=== PATIENT | male | born 1950 | race Caucasian/White ===

== ENCOUNTER → 2016-10-28 | Day surgery (SDC) | payer BC ==
[~2016-10-28] MED LIST: FENTANYL 100 MCG/2 ML VIAL ONE; IV START KIT ONE; LACTATED RINGERS 1,000 ML IV SCH; LACTATED RINGERS 1,000 ML ONE; PROPOFOL 60 ML IV ONE
--- NOTE | 2016-11-01 13:00 | SURGPATH ---
[facility] [address] [place] [id number] Patient Name: MARYBETH LOPEZ MR#: [id number] : 1950 Gender: M Specimen #: [id number] Collected: 10/28/2016 Received: 10/31/2016 Reported: 11/01/2016 Submitting Phys: ANIA JONES Copy To Phys: [facility] Clinical History / Pre-Operative Diagnosis: Screening colonoscopy Specimen Source / Surgical Procedure Performed: Sigmoid colon polyp biopsies 30 cm x2 Interpretation: SIGMOID COLON, AT 30 CM X2, BIOPSY: - HYPERPLASTIC POLYP Electronically Signed Out Daren Atkinson M.D. Gross Description: The specimen is received in formalin labeled with the patient's name and "sigmoid polyp biopsy 30 cm". The specimen consists of two fragments of oquendo soft tissue, 0.5 x 0.3 x 0.2 cm in aggregate. Submitted in toto in one cassette. FANTA Khalil Microscopic Description: Levels reveal colonic mucosa surfaced by tubular glands with focal hyperplastic features. Adenomatous and malignant features are not present. 1: 10331 K63.5
== END | disposition home or self-care (01) ==
LOC: SDC 09:45
PROVIDERS: ATTEND Surgery
PROC: 0DBN8ZX Excision of Sigmoid Colon, Via Natural or Artificial Opening Endoscopic, Diagnostic (ICD-10-PCS; principal; 2016-10-28)
DX: Z12.11 Encounter for screening for malignant neoplasm of colon (principal); K63.5 Polyp of colon; K57.30 Diverticulosis of large intestine without perforation or abscess without bleeding; I10 Essential (primary) hypertension; E78.5 Hyperlipidemia, unspecified; R01.1 Cardiac murmur, unspecified